=== PATIENT | female | born 2000 | race Asian ===

== ENCOUNTER 2019-07-31 17:55 | Emergency (ER) | payer OTHER ==
[~2019-07-31] VITALS: Ht 170.2 cm; Wt 75.8 kg
[2019-07-31] MEDS ORDERED: Tylenol325 MG PO (18:04)
[2019-07-31] MEDS ORDERED: Lithium Carbon450 MG PO (18:08)
== END 2019-07-31 18:12 | disposition home or self-care (01) ==
LOC: ER 17:55
DX: Z76.0 Encounter for issue of repeat prescription (principal)
CPT/HCPCS: 99281

== ENCOUNTER → 2019-07-31 | Outpatient (CLI) | payer OTHER ==
[~2019-07-31] MED LIST: Lithium Carbon450 MG PO; Tylenol325 MG PO
[2019-07-31 16:14] LABS: BASOPHILS ABSOLUTE AUTO 0.02 K/mm3 (0.00-0.23); BASOPHILS PERCENT AUTO 0 % (0-2); EOSINOPHILS ABSOLUTE AUTO 0.24 K/mm3 (0.00-0.68); EOSINOPHILS PERCENT AUTO 4 % (0-6); Hematocrit 36.8 % (33.0-51.0); Hemoglobin 12.9 g/dL (11.5-16.0); IMMATURE GRAN ABSOLUTE AUTO 0.01 K/mm3 (0.00-0.10); IMMATURE GRAN PERCENT AUTO 0 % (0-1); LYMPHOCYTES ABSOLUTE AUTO 1.29 K/mm3 (0.84-5.20); LYMPHOCYTES PERCENT AUTO 23 % (21-46); MONOCYTES ABSOLUTE AUTO 0.38 K/mm3 (0.16-1.47); MONOCYTES PERCENT AUTO 7 % (4-13); Mean Corpuscular HGB 31.2 pg (26.0-34.0); Mean Corpuscular HGB Conc 35.1 g/dL (31.5-36.5); Mean Corpuscular Volume 89 fL (80-100); Mean Platelet Volume 10.8 fL (9.1-12.4); NEUTROPHILS ABSOLUTE AUTO 3.57 K/mm3 (1.96-9.15); NEUTROPHILS PERCENT AUTO 65 % (41-73); Platelet Count 211 K/mm3 (150-400); RDW Coefficient Variation 12.9 % (11.7-14.2); RDW Standard Deviation 41.8 fL (35.1-46.3); Red Blood Cell Count 4.13 M/mm3 (3.80-5.20); White Blood Cell Count 5.51 K/mm3 (4.00-11.30)
[2019-07-31 16:23] LABS: Anion Gap 13 mmol/L (6-16); Blood Urea Nitrogen 6 mg/dL (8-24); Bun/Creatinine Ratio 6.1 (12.0-20.0); CO2, Blood 21 mmol/L (21-32); Calcium, Blood 8.8 mg/dL (8.5-10.1); Chloride, Blood 109 mmol/L (98-108); Creatinine, Blood 0.98 mg/dL (0.40-1.00); Glomerular Filtration Rate >60 (60-); Glucose, Blood 98 mg/dL (70-99); Potassium, Blood 3.5 mmol/L (3.5-5.5); Sodium, Blood 143 mmol/L (136-145)
== END | disposition home or self-care (01) ==
LOC: LAB EV 16:10 → LAB SHORT 16:10
PROVIDERS: Physician Assistant
DX: R39.14 Feeling of incomplete bladder emptying (principal)
CPT/HCPCS: 36415; 80048; 85025

== ENCOUNTER 2021-01-18 11:39 | Observation (INO) | payer OTHER ==
[~2021-01-18] VITALS: Ht 170.2 cm; Wt 77.1 kg
[2021-01-18 12:58] LABS: Source, Urine Clean Catch
[2021-01-18 13:04] LABS: Appearance, Urine Hazy (Clear); Bilirubin, Urine Neg (Neg); Blood, Urine Neg (Neg); Color, Urine Yellow (P-Yellow); Glucose Qualitative, Urine Neg (Neg); Ketones, Urine Neg (Neg); Leukocyte Esterase, Urine Neg (Neg); Nitrite, Urine Neg (Neg); Protein, Urine Neg (Neg); Urobilinogen, Urine NORM (Normal)
[2021-01-18 13:19] LABS: BASOPHILS ABSOLUTE AUTO 0.02 K/mm3 (0.00-0.23); BASOPHILS PERCENT AUTO 0 % (0-2); EOSINOPHILS ABSOLUTE AUTO 0.25 K/mm3 (0.00-0.68); EOSINOPHILS PERCENT AUTO 4 % (0-6); Hematocrit 41.7 % (33.0-51.0); Hemoglobin 14.1 g/dL (11.5-16.0); IMMATURE GRAN ABSOLUTE AUTO 0.01 K/mm3 (0.00-0.10); IMMATURE GRAN PERCENT AUTO 0 % (0-1); LYMPHOCYTES ABSOLUTE AUTO 2.06 K/mm3 (0.84-5.20); LYMPHOCYTES PERCENT AUTO 32 % (21-46); MONOCYTES ABSOLUTE AUTO 0.33 K/mm3 (0.16-1.47); MONOCYTES PERCENT AUTO 5 % (4-13); Mean Corpuscular HGB 30.9 pg (26.0-34.0); Mean Corpuscular HGB Conc 33.8 g/dL (31.5-36.5); Mean Corpuscular Volume 91 fL (80-100); NEUTROPHILS ABSOLUTE AUTO 3.73 K/mm3 (1.96-9.15); NEUTROPHILS PERCENT AUTO 58 % (41-73); Platelet Count 219 K/mm3 (150-400); RDW Standard Deviation 39.8 fL (35.1-46.3); Red Blood Cell Count 4.57 M/mm3 (3.80-5.20)
[2021-01-18 13:35] LABS: Amorphous Mod (0-Heavy); Bacteria Few /hpf; Red Blood Cells, Urine 0-2 /hpf (0-2); Squamous Epithelial Cells Few /hpf (Few); White Blood Cells, Urine 0-2 /hpf (0-5)
[2021-01-18 13:37] LABS: U Amphetamine Screen Not Detected; U Barbituate Screen Not Detected; U Benzodiazapine Screen DETECTED; U Buprenorphine Screen Not Detected; U Cannabinoids Screen Not Detected; U Cocaine Screen Not Detected; U Methadone Screen Not Detected; U Methamphetamine Screen Not Detected; U Opiates Screen Not Detected; U Oxycodone Screen Not Detected; U Phencyclidine Screen Not Detected; U Propoxyphene Screen Not Detected
[2021-01-18 13:46] LABS: Alanine Aminotransfer (ALT/SGP 36 U/L (12-78); Albumin, Blood 3.2 g/dL (3.4-5.0); Albumin/Globulin Ratio 0.8 (0.8-1.8); Alk Phos 83 U/L (50-136); Anion Gap 4 mmol/L (6-16); Aspartate Aminotrans (AST/SGOT 31 U/L (12-37); Bilirubin, Total 0.2 mg/dL (0.1-1.0); Blood Urea Nitrogen 10 mg/dL (8-24); Bun/Creatinine Ratio 14.2 (12.0-20.0); CO2, Blood 22 mmol/L (21-32); Calcium, Blood 8.8 mg/dL (8.5-10.1); Chloride, Blood 116 mmol/L (98-108); Ethanol (Alcohol), Blood, Med <3 mg/dL; Globulin, Blood 4.1 g/dL (2.2-4.0); Glomerular Filtration Rate >60 (60-); Glucose, Blood 89 mg/dL (70-99); Potassium, Blood 3.7 mmol/L (3.5-5.5); Salicylate <1.7 mg/dL (2.8-20.0); Sodium, Blood 142 mmol/L (136-145); Total Protein, Blood 7.3 g/dL (6.4-8.2)
[2021-01-18 13:52] LABS: Acetaminophen, Random <2.0 ug/mL (10.0-30.0)
[2021-01-18 17:44] LABS: Lithium 0.58 mmol/L (0.60-1.20)
[2021-01-18 19:07] LABS: Influenza A, PCR NEGATIVE (NEGATIVE); Influenza B, PCR NEGATIVE (NEGATIVE); Resp Syncytial Virus, PCR NEGATIVE (NEGATIVE); SARS-Cov-2 (COVID-19) PCR, MMC NEGATIVE (NEGATIVE)
[2021-01-18] MEDS ORDERED: PROZAC40 MG PO (23:31)
[2021-01-18] MEDS ORDERED: QUETIAPINE FUMA25 MG PO (23:31)
[2021-01-18] MEDS ORDERED: TOPIRAMATE ER50 MG PO (23:31)
[2021-01-18] MEDS ORDERED: [UNRECOGNIZED DRUG - CODE] PO (23:31)
== END 2021-01-19 14:58 | disposition home or self-care (01) ==
LOC: ER 11:39 → EOR 11:40
PROVIDERS: Physician Assistant; ADMIT Emergency Medicine
DX: F32.A Depression, unspecified (principal); F43.10 Post-traumatic stress disorder, unspecified; Z20.822 Contact with and (suspected) exposure to COVID-19
CPT/HCPCS: 0241U; 36415; 80053; 80178; 81001; 81025; 85025; 99285; A9270; G0378; G0480; Q3014

== ENCOUNTER → 2021-01-24 | Outpatient (CLI) | payer OTHER ==
[~2021-01-24] MED LIST changes: +PROZAC40 MG PO; +QUETIAPINE FUMA25 MG PO; +TOPIRAMATE ER50 MG PO; +[UNRECOGNIZED DRUG - CODE] PO
== END | disposition home or self-care (01) ==
LOC: LAB 12:00 → LAB SHORT 12:00
DX: R10.9 Unspecified abdominal pain (principal)
CPT/HCPCS: 87086

== ENCOUNTER → 2021-04-10 | Outpatient (CLI) | payer OTHER | END | disposition home or self-care (01) | LOC: LAB SHORT 11:50 → LAB 11:50 | PROVIDERS: Physician Assistant | DX: Z01.419 Encounter for gynecological examination (general) (routine) without abnormal findings (principal) | CPT/HCPCS: G0123 ==

== ENCOUNTER 2022-10-07 19:55 | Emergency (ER) | payer OTHER ==
[~2022-10-07] VITALS: Ht 170.2 cm; Wt 81.7 kg
[2022-10-07 20:11] VITALS: BP 107/72
== END 2022-10-07 20:47 | disposition home or self-care (01) ==
LOC: ER 19:55
DX: R22.33 Localized swelling, mass and lump, upper limb, bilateral (principal); F32.A Depression, unspecified; Z79.899 Other long term (current) drug therapy
CPT/HCPCS: 99283

== ENCOUNTER 2023-03-04 20:58 | Observation (INO) | payer OTHER ==
[~2023-03-04] VITALS: Ht 172.7 cm; Wt 85.5 kg
[2023-03-04 22:01] LABS: BASOPHILS ABSOLUTE AUTO 0.04 K/mm3 (0.00-0.23); BASOPHILS PERCENT AUTO 1 % (0-2); EOSINOPHILS ABSOLUTE AUTO 0.24 K/mm3 (0.00-0.68); EOSINOPHILS PERCENT AUTO 5 % (0-6); Hematocrit 37.7 % (33.0-51.0); Hemoglobin 12.5 g/dL (11.5-16.0); IMMATURE GRAN ABSOLUTE AUTO 0.01 K/mm3 (0.00-0.10); IMMATURE GRAN PERCENT AUTO 0 % (0-1); LYMPHOCYTES ABSOLUTE AUTO 1.51 K/mm3 (0.84-5.20); LYMPHOCYTES PERCENT AUTO 31 % (21-46); MONOCYTES ABSOLUTE AUTO 0.26 K/mm3 (0.16-1.47); MONOCYTES PERCENT AUTO 5 % (4-13); Mean Corpuscular HGB 30.4 pg (26.0-34.0); Mean Corpuscular HGB Conc 33.2 g/dL (31.5-36.5); Mean Corpuscular Volume 92 fL (80-100); NEUTROPHILS ABSOLUTE AUTO 2.76 K/mm3 (1.96-9.15); NEUTROPHILS PERCENT AUTO 57 % (41-73); Platelet Count 224 K/mm3 (150-400); RDW Coefficient Variation 13.2 % (11.7-14.2); RDW Standard Deviation 43.5 fL (35.1-46.3); Red Blood Cell Count 4.11 M/mm3 (3.80-5.20); White Blood Cell Count 4.82 K/mm3 (4.00-11.30)
[2023-03-04 22:11] LABS: U Amphetamine Screen Not Detected; U Barbituate Screen Not Detected; U Benzodiazapine Screen DETECTED; U Buprenorphine Screen Not Detected; U Cannabinoids Screen Not Detected; U Cocaine Screen Not Detected; U Methadone Screen Not Detected; U Methamphetamine Screen Not Detected; U Opiates Screen Not Detected; U Oxycodone Screen Not Detected; U Phencyclidine Screen Not Detected
[2023-03-04 22:23] LABS: Beta HCG, Quantitative, Serum <1 mIU/mL (0-3)
[2023-03-04 22:45] LABS: Acetaminophen, Random <2.0 ug/mL (10.0-30.0); Ethanol (Alcohol), Blood, Med <3 mg/dL; Salicylate <1.7 mg/dL (2.8-20.0)
[2023-03-04 22:47] LABS: Alanine Aminotransfer (ALT/SGP 24 U/L (12-78); Albumin, Blood 3.1 g/dL (3.4-5.0); Albumin/Globulin Ratio 0.9 (0.8-1.8); Alk Phos 81 U/L (50-136); Anion Gap 2 mmol/L (6-16); Aspartate Aminotrans (AST/SGOT 25 U/L (12-37); Bilirubin, Total 0.4 mg/dL (0.1-1.0); Blood Urea Nitrogen 5 mg/dL (8-24); Bun/Creatinine Ratio 5.9 (12.0-20.0); CO2, Blood 22 mmol/L (21-32); Chloride, Blood 121 mmol/L (98-108); Creatinine, Blood 0.85 mg/dL (0.40-1.00); Globulin, Blood 3.5 g/dL (2.2-4.0); Glomerular Filtration Rate 97 (60-); Glucose, Blood 98 mg/dL (70-99); Potassium, Blood 4.3 mmol/L (3.5-5.5); Sodium, Blood 145 mmol/L (136-145); Total Protein, Blood 6.6 g/dL (6.4-8.2)
[2023-03-04 22:51] LABS: PCO2 Venous 40.2 mmHg (38-42); pH Blood Venous 7.27 (7.34-7.37)
[2023-03-04 22:52] LABS: Base Excess Venous -8.7 mmol/L; Bicarbonate Venous 17.7 mmol/L (24.0-30.0)
[2023-03-05 03:05] LABS: Base Excess Venous -7.7 mmol/L; Bicarbonate Venous 18.7 mmol/L (24.0-30.0); PCO2 Venous 37.1 mmHg (38-42); pH Blood Venous 7.31 (7.34-7.37)
[2023-03-05 03:12] LABS: BASOPHILS ABSOLUTE AUTO 0.02 K/mm3 (0.00-0.23); BASOPHILS PERCENT AUTO 0 % (0-2); EOSINOPHILS PERCENT AUTO 5 % (0-6); Hematocrit 34.5 % (33.0-51.0); Hemoglobin 11.8 g/dL (11.5-16.0); IMMATURE GRAN ABSOLUTE AUTO 0.01 K/mm3 (0.00-0.10); IMMATURE GRAN PERCENT AUTO 0 % (0-1); LYMPHOCYTES PERCENT AUTO 35 % (21-46); MONOCYTES ABSOLUTE AUTO 0.34 K/mm3 (0.16-1.47); MONOCYTES PERCENT AUTO 6 % (4-13); Mean Corpuscular HGB 30.5 pg (26.0-34.0); Mean Corpuscular HGB Conc 34.2 g/dL (31.5-36.5); Mean Corpuscular Volume 89 fL (80-100); Mean Platelet Volume 10.7 fL (9.1-12.4); NEUTROPHILS ABSOLUTE AUTO 3.28 K/mm3 (1.96-9.15); NEUTROPHILS PERCENT AUTO 54 % (41-73); Platelet Count 199 K/mm3 (150-400); RDW Coefficient Variation 13.2 % (11.7-14.2); RDW Standard Deviation 43.2 fL (35.1-46.3); Red Blood Cell Count 3.87 M/mm3 (3.80-5.20); White Blood Cell Count 6.05 K/mm3 (4.00-11.30)
[2023-03-05 03:45] LABS: Albumin, Blood 2.9 g/dL (3.4-5.0); Albumin/Globulin Ratio 0.9 (0.8-1.8); Bilirubin, Total 0.4 mg/dL (0.1-1.0); Bun/Creatinine Ratio 5.3 (12.0-20.0); Creatinine, Blood 0.94 mg/dL (0.40-1.00); Globulin, Blood 3.1 g/dL (2.2-4.0); Potassium, Blood 3.7 mmol/L (3.5-5.5)
[2023-03-05 06:18] LABS: Base Excess Venous -3.3 mmol/L; Bicarbonate Venous 22.1 mmol/L (24.0-30.0); PCO2 Venous 36.3 mmHg (38-42); pH Blood Venous 7.39 (7.34-7.37)
[2023-03-05 12:21] LABS: Lithium 0.56 mmol/L (0.60-1.20)
--- NOTE | 2023-03-05 13:58 | NUR ---
REPORT RECEIVED FROM PRATIMA IN ED AT 1353. AWAITING PT ARRIVAL AT THIS TIME, ROOM MITIGATED.
[2023-03-05 15:10] VITALS: BP 111/74
--- NOTE | 2023-03-05 17:56 | NUR ---
SHIFT SUMMARY PT AXO, COOPERATIVE WITH CARE THOUGH WITHDRAWN AND FLAT AFFECT. VSS, AFEBRILE AT 98.8. PT EDUCATED ON 2MD HOLD, ALL QUESTIONS ANSWERED. DR. JARAMILLO CONSULTED, SEE NOTE. 1:1 SITTER PRESENT IN ROOM WITH PATIENT. PT DENIES PAIN, SOB AND N/V THOUGH PT STATES THAT HER STOMACH IS "UPSET" AND SHE THINKS SHE MIGHT HAVE DIARRHEA. PT IS ON HER PERIOD. ON TELE, NSR AT 90. BED IN LOW POSITION, CALL LIGHT WITHIN REACH.
[2023-03-05 21:00] VITALS: BP 110/77
--- NOTE | 2023-03-05 21:28 | NUR ---
PATIENT STILL HIGH SI RISK, DESPITE SUICIDE RISK ASSESSMENT, PATIENT IS ALERT AND ORIENTED X 4 SLOW TO RESPOND, ANXIOUS AT BASELINE, DENIES CHEST PAIN, OR SOB. DENIES IMMEDIATE CONCERNS VSS, SITTER JOHN PAUL, IN THE ROOM. ROOM HAS BEEN MITIGATED, TELEMETRY IN PLACE, NO CONCERNS FROM THIS RN.
[2023-03-06 04:18] VITALS: BP 100/65
--- NOTE | 2023-03-06 04:20 | NUR ---
EOS: NO CHANGES FROM ASSUMPTION OF CARE VSS, TELE IN PLACE, NO CHEST PAIN, NO ACUTE CARDIAC OR RESPIRATORY DISTRESS. PATINET RESTING PEACEFULLYL. NO ACTIVE CONCERNS FROM PATIENT OR THIS LICENSED NURSE PRACTITIONER, SITTER 1:1 STILL IN THE ROOM.
[2023-03-06 06:04] LABS: Bun/Creatinine Ratio 10.3 (12.0-20.0); Creatinine, Blood 0.78 mg/dL (0.40-1.00); Potassium, Blood 3.7 mmol/L (3.5-5.5)
[2023-03-06 08:08] VITALS: BP 105/73
[2023-03-06 08:52] LABS: Lithium 0.66 mmol/L (0.60-1.20)
--- NOTE | 2023-03-06 10:11 | NUR ---
AM NOTE/TRANSFER NOTE this rn assumed care at 0700. vital signs stable. medical with tele. tele sr 80s patient is alert and oriented x4. perrla. patient affect is flat, depressed, withdrawn and mood is cooperative and withindrawn. this rn explored what lead the patient to over dose and the patient become quiet and stated "i didn't know what else to do" this rn attempted to explore what the patient meant with therapeutic communication and active listening. patient became quiet and looking away. this rn sat in silence with the patient and informed her it was okay she didn't have to talk right now. the patient talked about her time at the inpatient [facility] facility last time she was there, and expressed wanting to get better. patient sitter in room. patient reports no pain, chest pain/pressure or shortness of breath. patient able to do own adls with supervision. see shift assessment for further detials. this rn gave report to medical floor rn at 0951. patient up to new room on medical floor.
--- NOTE | 2023-03-06 10:26 | NUR ---
Received transfer at 1010 via [facility]. Pt is alert and oriented x4. Denies suicidal ideation at this time. States feels better now that she has seen her mom and sister. Denies auditory/visual hallucinations. Flat effect, minimal eye contact. Ambulated to bed independently. SI sitter at bedside. Oriented to room, instructed to inform sitter of needs. Emtional support provided. Will continue to monitor.
--- NOTE | 2023-03-06 11:17 | NUR ---
Yusuf YANG from [facility] calling for report as pt has a bed available Room [facility] at 2200. Stephanie user experience designer aware.
[2023-03-06 14:14] VITALS: BP 105/73
--- NOTE | 2023-03-06 16:52 | NUR ---
SHIFT SUMMARY Pt remains A&Ox3 this shift. VSS. Denies suicidal ideations. 1:[address] Ambulates independently. Denies pain. Eating meals provided. Voiding without difficulty. No acute distress or changes this shif.
[2023-03-06] MEDS ORDERED: ENOX40I SC (16:53)
[2023-03-06 19:35] VITALS: BP 115/78
[2023-03-07 01:42] VITALS: BP 105/73
--- NOTE | 2023-03-07 01:53 | NUR ---
PT DISCHARGED TO [facility] IN [place]. IV AND TELE DC'D BY DAYSHIFT NURSE. PT USED BATHROOM PRIOR TO TRANSPORT. DC PACKET GIVEN TO SECURE TRANSPORT TEAM WELL BELONGINGS THAT WERE IN LOCKED CABINENT. PT SENT WITH PAPER SCRUBS AND WARM BLANKET. PT HAD NO NEW QUESTIONS. PT TAKEN BY WHEELCHAIR BY SECURITY TRANSPORTER.
== END 2023-03-07 01:50 ==
LOC: ER 20:58 → MEDS 20:59 → ERHOLD 20:59 → PCU 03-05 14:35 → MEDS 03-06 10:22
PROVIDERS: Emergency Medicine; Internal Medicine; Psychiatry & Neurology Psychiatry; ADMIT Student in an Organized Health Care Education/Training Program
DX: T38.3X2A Poisoning by insulin and oral hypoglycemic [antidiabetic] drugs, intentional self-harm, initial encounter (principal); T43.592A Poisoning by other antipsychotics and neuroleptics, intentional self-harm, initial encounter
CPT/HCPCS: 36415; 80048; 80053; 80178; 82803; 82947; 83605; 83735; 84443; 84702; 85025; 93005; 93010; 96365; 96366; 96372; 99285-25; A9270; G0378; G0480; J1650; J7070